=== PATIENT | female | born 2000 | race Caucasian/White ===

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

== ENCOUNTER 2022-11-24 15:56 | Emergency (ER) | payer OTHER ==
[~2022-11-24] VITALS: Ht 149.9 cm; Wt 52.3 kg
[2022-11-24] MEDS ORDERED: IBUPROFEN 600 MG TABLET PO ONE (16:30)
[2022-11-24 16:40] LABS: BASOPHILS % (AUTO) 0.3 % (0.0-2.0); EOSINOPHILS % (AUTO) 1.6 % (1.0-6.0); HEMATOCRIT 41.2 % (36-46); HEMOGLOBIN 13.6 g/dL (12.0-16.0); LYMPHOCYTES # (AUTO) 2.3 K/uL (1.0-4.8); MEAN CORPUSCULAR HEMOGLOBIN 29.8 pg (26.0-34.0); MEAN CORPUSCULAR HGB CONC 33.1 G/dL (31.0-37.0); MEAN CORPUSCULAR VOLUME 90 fL (80-100); MONOCYTES # (AUTO) 0.6 K/uL (0.1-1.0); MONOCYTES % (AUTO) 6.1 % (2.0-9.0); NEUTROPHILS # (AUTO) 6.4 K/uL (1.8-7.7); PLATELET COUNT (AUTO) 289 K/uL (150-450); RED BLOOD CELL COUNT(AUTO) 4.56 MIL/uL (4.00-5.20); RED CELL DISTRIBUTION WIDTH 14.8 % (11.5-14.5)
[2022-11-24 16:45] VITALS: BP 121/72
[2022-11-24 16:53] LABS: APPEARANCE,URINE HAZY (CLEAR); BILIRUBIN,URINE NEGATIVE (NEGATIVE); GLUCOSE, URINE (UA) NEGATIVE (NEGATIVE); LEUKOCYTE ESTERASE ,URINE NEGATIVE (NEGATIVE); NITRATE,URINE NEGATIVE (NEGATIVE); OCCULT BLOOD,URINE NEGATIVE (NEGATIVE); PH,URINE 5.5 (5.0-8.0); PROTEIN,URINE NEGATIVE (NEGATIVE); SPECIFIC GRAVITIY, URINE 1.012 (1.003-1.030); UROBILINOGEN,URINE <=1.0 mg/dL (<=1.0)
[2022-11-24 16:57] LABS: ANION GAP 10 mmol/L (8-16); CALCIUM, TOTAL 9.4 mg/dL (8.8-10.5); CARBON DIOXIDE 28 mmol/L (22-29); CHLORIDE 102 mmol/L (98-107); CREATININE 0.59 mg/dL (0.60-1.30); GLOMERULAR FILTR. RATE CALC > 60 mL/min (>60); GLUCOSE,RANDOM 95 mg/dL (70-110); POTASSIUM 3.9 mmol/L (3.5-5.1); SODIUM SERUM 140 mmol/L (136-145); UREA NITROGEN, BLOOD 10 mg/dL (7-18)
[2022-11-24 17:08] LABS: ALANINE AMINOTRANSFERASE 32 U/L (12-78); ALKALINE PHOSPHATASE 79 U/L (46-116); ASPARTATE AMINOTRANSFERASE 20 U/L (15-37); BILIRUBIN,TOTAL 0.3 mg/dL (0.1-1.0); HCG,QUANTITATIVE 1 mIU/mL (0-6); LIPASE 79 U/L (73-393); TOTAL PROTEIN, SERUM 7.6 g/dL (6.4-8.2)
[2022-11-24] MEDS ORDERED: IBUP-1506 PO (17:14)
== END 2022-11-24 17:23 | disposition home or self-care (01) ==
LOC: EMS 16:18
DX: R10.32 Left lower quadrant pain (principal); Z90.49 Acquired absence of other specified parts of digestive tract
CPT/HCPCS: 80053; 81003; 83690; 84702; 85025; 99283

== ENCOUNTER 2023-11-21 09:06 | Emergency (ER) | payer MEDICAID, OTHER ==
[~2023-11-21] VITALS: Ht 149.9 cm; Wt 69.0 kg
[~2023-11-21 09:06] MED LIST changes: -DOXY100C PO; +IBUP-1506 PO; -METR500 PO
[2023-11-21 09:18] VITALS: TEMP 97.9
[2023-11-21 10:54] LABS: COVID AG,FIA SOURCE NASAL SWAB
[2023-11-21 11:35] LABS: SARS-COV2 (COVID) ANTIGEN,FIA Negative (Negative)
[2023-11-21 11:38] LABS: INFLUENZA TYPE A NEGATIVE FOR TYPE A (NEGATIVE); INFLUENZA TYPE B NEGATIVE FOR TYPE B (NEGATIVE)
[2023-11-21] MEDS: GuaiFENesin/D-METHORPHAN [SUGAR-FREE] 200-20MG/10 ML SYRUP UDCUP PO ONE (11:40)
[2023-11-21] MEDS: ACETAMINOPHEN 500 MG TABLET PO ONE (11:41)
[2023-11-21 12:30] LABS: RAPID GROUP A STREP NEGATIVE (NEGATIVE)
[2023-11-21] MEDS ORDERED: IBUP-1554 PO (12:47)
[2023-11-21] MEDS ORDERED: ACET-66 PO (12:47)
[2023-11-21] MEDS ORDERED: GUAIFDM PO (12:47)
[2023-11-21 12:57] VITALS: BP 126/72; PULSE 83; RESP 18
== END 2023-11-21 13:04 | disposition home or self-care (01) ==
LOC: EMS 09:06
DX: J02.8 Acute pharyngitis due to other specified organisms (principal); J45.909 Unspecified asthma, uncomplicated; Z90.49 Acquired absence of other specified parts of digestive tract; Z20.822 Contact with and (suspected) exposure to COVID-19
CPT/HCPCS: 87430; 87804; 99283

== ENCOUNTER 2024-08-19 10:34 | Emergency (ER) | payer SELFPAY ==
[~2024-08-19] VITALS: Ht 162.6 cm; Wt 58.5 kg
[~2024-08-19 10:34] MED LIST changes: +ACET-66 PO; +GUAIFDM PO; -IBUP-1506 PO; +IBUP-1554 PO
[2024-08-19 11:21] VITALS: BP 110/80; PULSE 92; RESP 18; TEMP 97.9; O2SAT 99
[2024-08-19 11:39] LABS: COVID AG,FIA SOURCE NASAL SWAB
[2024-08-19 12:15] LABS: SARS-COV2 (COVID) ANTIGEN,FIA Negative (Negative)
[2024-08-19 12:16] LABS: INFLUENZA TYPE A NEGATIVE FOR TYPE A (NEGATIVE); INFLUENZA TYPE B NEGATIVE FOR TYPE B (NEGATIVE)
[2024-08-19] MEDS ORDERED: AMOX-457 PO (12:24)
== END 2024-08-19 15:01 | disposition home or self-care (01) ==
LOC: EMS 10:34
DX: J01.90 Acute sinusitis, unspecified (principal); Z90.49 Acquired absence of other specified parts of digestive tract; Z20.822 Contact with and (suspected) exposure to COVID-19
CPT/HCPCS: 71046; 87804; 99284